=== PATIENT | male | born 1980 | race African-American/Black ===

== ENCOUNTER 2021-07-23 22:49 | Emergency (ER) | payer MEDICAID ==
[~2021-07-23] VITALS: Ht 175.3 cm; Wt 100.5 kg
[2021-07-23 23:00] VITALS: BP 116/80
[2021-07-23] MEDS ORDERED: IBUPROFEN 400MG TABLET PO ONE (23:30)
[2021-07-24] MEDS ORDERED: IBUP-2028 MT (00:43)
== END 2021-07-24 01:57 | disposition home or self-care (01) ==
LOC: ER 22:49
DX: M54.6 Pain in thoracic spine (principal); M79.604 Pain in right leg
CPT/HCPCS: 71045; 93005; 93970; 99285

== ENCOUNTER 2022-06-11 01:36 | Emergency (ER) | payer MEDICAID ==
[~2022-06-11] VITALS: Ht 175.3 cm; Wt 101.2 kg
[~2022-06-11 01:36] MED LIST: IBUP-2028 MT
[2022-06-11] MEDS ORDERED: KETOROLAC 60MG/2ML VIAL IM ONE (04:15)
[2022-06-11 04:27] VITALS: BP 148/95
[2022-06-11] MEDS ORDERED: NAPR-681 MT (05:07)
== END 2022-06-11 05:48 | disposition home or self-care (01) ==
LOC: ER 01:36
DX: M25.532 Pain in left wrist (principal)
CPT/HCPCS: 73110; 96372; 99283; J1885

== ENCOUNTER 2023-03-23 23:16 | Emergency (ER) | payer MEDICAID ==
[~2023-03-23] VITALS: Ht 188 cm; Wt 90.0 kg
[~2023-03-23 23:16] MED LIST changes: +NAPR-681 MT
[2023-03-23 23:18] VITALS: BP 140/92; PULSE 84; RESP 16; TEMP 98; O2SAT 100
[2023-03-24] MEDS ORDERED: ACETAMINOPHEN 325MG TABLET PO ONE (05:45)
[2023-03-24] MEDS ORDERED: KETOROLAC 30MG/ML VIAL IM ONE (05:45)
[2023-03-24] MEDS ORDERED: IBUP-2029 MT (07:35)
== END 2023-03-24 08:04 | disposition home or self-care (01) ==
LOC: ER 23:16
DX: M25.551 Pain in right hip (principal); M16.11 Unilateral primary osteoarthritis, right hip
CPT/HCPCS: 73502; 96372; 99283; J1885; Z7610